=== PATIENT | male | born 1950 | race Caucasian/White ===

== ENCOUNTER 2024-02-22 06:51 | Outpatient (RCR) | payer MEDICARE, OTHER, SELFPAY | END 2024-02-22 23:59 | disposition home or self-care (01) | LOC: RPT 06:51 | PROVIDERS: ATTENDING PHYSICIAN Physician Assistant Surgical; FAMILY PHYSICIAN Family Medicine | DX: Z47.1 Aftercare following joint replacement surgery (principal); Z96.651 Presence of right artificial knee joint; R26.89 Other abnormalities of gait and mobility | CPT/HCPCS: 97110; 97162 ==

== ENCOUNTER 2024-02-28 06:21 | Outpatient (RCR) | payer MEDICARE, OTHER, SELFPAY | END 2024-02-28 07:56 | disposition home or self-care (01) | LOC: RPT 06:21 | PROVIDERS: ATTENDING PHYSICIAN Physician Assistant Surgical; FAMILY PHYSICIAN Family Medicine | DX: M17.12 Unilateral primary osteoarthritis, left knee (principal); R26.89 Other abnormalities of gait and mobility; Z96.651 Presence of right artificial knee joint; Z73.6 Limitation of activities due to disability | CPT/HCPCS: 97110 ==

== ENCOUNTER → 2024-05-09 06:38 | Outpatient (REF) | payer MEDICARE, OTHER, SELFPAY ==
[2024-05-09 08:03] LABS: ALT (SGPT) 28 U/L (0-50); AST (SGOT) 28 U/L (17-59); Albumin 4.5 g/dl (3.5-5.0); Alkaline Phosphatase 57 U/L (38-126); Blood Urea Nitrogen 22 mg/dl (9-20); Calcium 9.6 mg/dl (8.4-10.2); Carbon Dioxide 26 mmol/L (22-30); Chloride 103 mmol/L (98-107); Glucose 87 mg/dl (70-99); HDL Cholesterol 49 mg/dl; LDL Cholesterol, Calculated 116 mg/dl; Potassium 4.8 mmol/L (3.5-5.1); Sodium 141 mmol/L (135-145); Total Bilirubin 0.5 mg/dl (0.2-1.3); Total Cholesterol 185 mg/dl (50-199); Triglyceride 104 mg/dl (10-149); Very Low Density Lipoprotein 20 mg/dl (0-30); eGFR > 60.00
[2024-05-09 08:34] LABS: TSH Reflex To Free T4 4.07 uIU/ml (0.47-4.68)
== END ==
LOC: REG 06:38
PROVIDERS: ATTENDING PHYSICIAN Family Medicine
DX: I10 Essential (primary) hypertension (principal); E03.9 Hypothyroidism, unspecified; M17.11 Unilateral primary osteoarthritis, right knee; N40.0 Benign prostatic hyperplasia without lower urinary tract symptoms; E66.9 Obesity, unspecified
CPT/HCPCS: 36415; 80053; 80061; 84443

== ENCOUNTER 2024-05-14 06:23 | Day surgery (SDC) | payer MEDICARE, OTHER, SELFPAY | END 2024-05-14 08:54 | LOC: GI 06:23 | PROVIDERS: ATTENDING PHYSICIAN Internal Medicine Gastroenterology | DX: Z12.11 Encounter for screening for malignant neoplasm of colon (principal); K64.8 Other hemorrhoids; K57.30 Diverticulosis of large intestine without perforation or abscess without bleeding; K56.699 Other intestinal obstruction unspecified as to partial versus complete obstruction; K63.5 Polyp of colon; Z86.0100 Personal history of colon polyps, unspecified | CPT/HCPCS: 45380; 88305 ==

== ENCOUNTER → 2024-09-14 06:20 | Outpatient (REF) | payer MEDICARE, OTHER, SELFPAY ==
[2024-09-14 08:22] LABS: C-Reactive Protein < 5.00 mg/L (0.0-10.00)
[2024-09-14 08:30] LABS: Erythrocyte Sed Rate 8 mm/hour (0-20)
== END ==
LOC: REG 06:20
PROVIDERS: ATTENDING PHYSICIAN Orthopaedic Surgery Adult Reconstructive Orthopaedic Surgery; FAMILY PHYSICIAN Family Medicine
DX: Z96.651 Presence of right artificial knee joint (principal); Z01.818 Encounter for other preprocedural examination
CPT/HCPCS: 36415; 85652; 86140; 93005

== ENCOUNTER → 2024-10-05 06:22 | Outpatient (REF) | payer MEDICARE, OTHER, SELFPAY ==
[2024-10-05 07:05] LABS: % Basophils 0.8 % (0-2); % Eosinophils 2.7 % (0-6); % Immature Granulocytes 0.3 % (0-0.5); % Lymphocytes 26.9 % (20.5-51.1); % Monocytes 8.3 % (1.7-9.3); Absolute Basophils 0.1 10^3/uL (0-0.2); Absolute Eosinophils 0.2 10^3/uL (0-0.7); Absolute Lymphocytes 1.7 10^3/uL (1.2-3.4); Absolute Monocytes 0.5 10^3/uL (0.1-0.6); Absolute Neutrophils 3.9 10^3/uL (1.4-6.5); Hematocrit 45.2 % (39.0-52.0); Hemoglobin 15.3 g/dL (13.0-18.0); Mean Corp Hgb Conc. 33.8 g/dL (33.0-37.0); Mean Corpuscular Hgb 32.1 pg (27.0-31.0); Mean Platelet Volume 9.9 fL (7.4-10.4); Nucleated Red Blood Cells % 0 % (-); Platelet Count 235 10^3/uL (130-400); Red Blood Cell Count 4.76 10^6/uL (4.70-6.10); Red Cell Dist. Width 13.2 % (11.5-14.5); White Blood Cell Count 6.4 10^3/uL (4.8-10.8)
[2024-10-05 07:28] LABS: Blood Urea Nitrogen 20 mg/dl (9-20); Calcium 9.9 mg/dl (8.4-10.2); Carbon Dioxide 28 mmol/L (22-30); Chloride 102 mmol/L (98-107); Glucose 89 mg/dl (70-99); Potassium 4.2 mmol/L (3.5-5.1); Sodium 138 mmol/L (135-145); eGFR > 60.00
[2024-10-05 08:18] LABS: Hepatitis C Antibody Negative (Negative)
[2024-10-05 09:12] LABS: Glycohemoglobin (HgbA1c) 5.7 % (4.0-5.6)
[2024-10-07 00:55] LABS: Fructosamine 231 umol/L (205-285)
== END ==
LOC: REG 06:22
PROVIDERS: ATTENDING PHYSICIAN Orthopaedic Surgery Adult Reconstructive Orthopaedic Surgery; FAMILY PHYSICIAN Family Medicine
DX: Z01.818 Encounter for other preprocedural examination (principal); R73.09 Other abnormal glucose
CPT/HCPCS: 36415; 80048; 82985; 83036; 85025; 86803

== ENCOUNTER 2024-11-16 05:34 | Emergency (ER) | payer MEDICARE, OTHER, SELFPAY ==
[2024-11-16 05:40] VITALS: BP 158/85
[2024-11-16 05:46] VITALS: BMI 31.2
[2024-11-16 05:47] VITALS: BP 158/85
[2024-11-16 05:52] LABS: Glucose - Point of Care 100 mg/dl (70-99)
[2024-11-16 06:18] LABS: ALT (SGPT) 34 U/L (0-50); AST (SGOT) 24 U/L (17-59); Albumin 4.2 g/dl (3.5-5.0); Alkaline Phosphatase 67 U/L (38-126); Blood Urea Nitrogen 31 mg/dl (9-20); Calcium 9.8 mg/dl (8.4-10.2); Carbon Dioxide 26 mmol/L (22-30); Chloride 105 mmol/L (98-107); Estimated Creatinine Clearance 67 ml/min; Glucose 109 mg/dl (70-99); INR 0.99; PT 13.6 Sec (11.4-14.6); Potassium 4.3 mmol/L (3.5-5.1); Sodium 140 mmol/L (135-145); Total Protein 7.3 g/dl (6.3-8.2); eGFR > 60.00
[2024-11-16 06:19] LABS: APTT 28.5 Sec (23.4-35.0)
[2024-11-16 06:23] LABS: % Basophils 0.6 % (0-2); % Eosinophils 2.2 % (0-6); % Immature Granulocytes 0.3 % (0-0.5); % Lymphocytes 15.2 % (20.5-51.1); % Monocytes 6.2 % (1.7-9.3); % Neutrophils 75.5 % (42.2-75.2); Absolute Basophils 0.1 10^3/uL (0-0.2); Absolute Eosinophils 0.2 10^3/uL (0-0.7); Absolute Lymphocytes 1.6 10^3/uL (1.2-3.4); Absolute Monocytes 0.7 10^3/uL (0.1-0.6); Absolute Neutrophils 8.1 10^3/uL (1.4-6.5); Hematocrit 37.5 % (39.0-52.0); Hemoglobin 12.6 g/dL (13.0-18.0); Mean Corp Hgb Conc. 33.6 g/dL (33.0-37.0); Mean Corpuscular Hgb 31.2 pg (27.0-31.0); Mean Corpuscular Volume 92.8 fL (80.0-94.0); Mean Platelet Volume 8.8 fL (7.4-10.4); Nucleated Red Blood Cells % 0 % (-); Platelet Count 423 10^3/uL (130-400); Red Blood Cell Count 4.04 10^6/uL (4.70-6.10); Red Cell Dist. Width 13.3 % (11.5-14.5); White Blood Cell Count 10.8 10^3/uL (4.8-10.8)
[2024-11-16 06:29] LABS: Troponin I < 0.012 ng/ml
--- NOTE | 2024-11-16 06:30 | ED.CVA ---
History of Present Illness
General
Chief Complaint: CVA/TIA Symptoms
Source: patient and family
Exam Limitations: none
Time Seen by Provider: 11/16/24 05:46
Nursing documentation reviewed up to this point in time: agreed with
Onset of Stroke Symptoms
Onset of symptoms known: Yes
Date of onset of symptoms: 11/16/24
History of Present Illness
History of Present Illness:
Pleasant 74-year-old male presents to the emergency department with left-sided facial swelling and numbness. Patient denies any other symptoms. He states that he awakened at 3 AM with these symptoms. Patient does have a history of left total knee
replacement and history of hypertension for which he is treated with lisinopril. Patient denies slurred speech blurry vision headache nausea, vomiting, chest pain, shortness of breath, or any focal weakness. He states that his mentation is intact
as far as he can
Review of Systems
Review of Systems
Allergies reviewed?: Yes
All Other Systems: ROS reviewed and negative except as documented in HPI and ROS
Constitutional: Reports no symptoms
EENT: Reports no symptoms
Respiratory: Reports no symptoms
Cardiac: Reports no symptoms
ABD/GI: Reports no symptoms
: Reports no symptoms
Musculoskeletal: Reports no symptoms
Skin: Reports no symptoms
Neurological: Reports no symptoms
Endocrine: Reports no symptoms
Hematologic/Lymphatic: Reports no symptoms
Psychiatric: Reports anxiety
Phy Exam
General Physical Exam
General Presentation: well appearing and no apparent distress
General Skin: warm and dry
General Habitus: normal
General Mental: alert
General Hydration: appears well hydrated
ENT Exam
ENT Exam: EOMI, pharynx normal, neck supple and normocephalic
Eye Exam
Eye Exam: PERRL, cornea clear and conjunctiva normal
Cardiovascular Exam
Cardiovascular Exam: regular rate/rhythm, no edema, no murmur and normal peripheral pulses
Pulmonary Exam
Pulmonary Exam: lungs clear, no respiratory distress, no rales, no crackles, no rhonchi, no stridor, no wheezing and no cough
Gastrointestinal Exam
Gastrointestinal Exam: normal bowel sounds, non tender, soft, no organomegaly, no pulsatile mass and non distended
Neurological Exam
Neurological Exam: alert, oriented x3, no motor deficits and speech normal
Mental
Mental Status: oriented to person, oriented to place and oriented to time
Describe Speech: normal speech
Cranial
Cranial Nerves: normal
EOM (CN3/4/6): intact
Motor
Seizure Activity: none
Gait: normal
Tremors: none
Sensory
Sensory Exam: intact
Cerebellar
Cerebellar Function: normal finger to nose, normal heel to osuna and normal Romberg test
Musculoskeletal Exam
Musculoskeletal Exam: full ROM and no edema
Skin Exam
Skin Exam: normal color, warm/dry, no rash and no petechia
Psychiatric Exam
Psychiatric Exam: normal mood/affect
Scores
NIH Stroke Score
Level of Consciousness: 0 - Alert
LOC Questions: 0-Answers both correctly
LOC Commands: 0-Performs both correctly
Best Horizontal Gaze: 0-Normal
Visual Tian: 0=Normal, no visual loss
Facial Palsy: 0=Normal, symmetrical
Motor - Right Arm: 0=No drift 10 seconds
Motor - Left Arm: 0=No drift 10 seconds
Motor - Right Le-No drift 5 seconds
Motor - Left Le-No drift 5 seconds
Limb Ataxia: 0-Absent
Sensation: 0-Normal
Best Language: 0-No aphasia
Dysarthria: 0-Normal
Extinction and Inattention: 0-No abnormality
Total Score:: 0
Thrombolytic Contraindication
Inclusion and Exclusion criteria reviewed: Yes
Reasons for NON-Tx with Thrombolytics ABSOLUTE Exclusions: Greater than 4.5 hrs from onset of sxs
Course
Orders/Labs/Results
Orders:
Orders
11/16/24 05:45
Electrocardiogram (*1) Urgent
Reason for Study: Other
Other Reason for Exam: Possible Stroke
Head wo Contrast CT [CT Head W/o Iv Contrast] Urgent
Comment:
Reason For Exam: left facial drooping and numbness
Bedside Glucose- Treatment ONCE
EKG- Treatment ONCE
Weight As Directed
Frequency: Once
Comment: ZERO STRETCHER SCALE FOR ACCURATE WEIGHT
11/16/24 05:49
Complete Blood Count/With Diff Urgent
Comprehensive Metabolic Panel Urgent
Erythrocyte Sed Rate Urgent
PTT Urgent
Prothrombin Time Urgent
Troponin I Urgent
11/16/24 06:39
Dexamethasone [Decadron] 10 mg PO NOW STA
Diphenhydramine [Benadryl] 25 mg PO NOW STA
Abnormal Lab Results
11/16/24 11/16/24
05:49 05:50
RBC 4.04 L 10^6/uL
(4.70-6.10)
Hgb 12.6 L g/dL
(13.0-18.0)
Hct 37.5 L %
(39.0-52.0)
MCH 31.2 H pg
(27.0-31.0)
Plt Count 423 H 10^3/uL
(130-400)
Absolute Neuts (auto) 8.1 H 10^3/uL
(1.4-6.5)
Absolute Monos (auto) 0.7 H 10^3/uL
(0.1-0.6)
Neutrophils % 75.5 H %
(42.2-75.2)
Lymphocytes % 15.2 L %
(20.5-51.1)
ESR 28 H mm/hour
(0-20)
BUN 31 H mg/dl
(9-20)
Glucose 109 H mg/dl
(70-99)
POC Glucose 100 H mg/dl
(70-99)
11/16/24 05:49
11/16/24 05:49
Vital Signs
Initial and Last Documented VS:
Initial Vital Signs
Temp Pulse BP
98.0 F 90 158/85
11/16/24 05:40 11/16/24 05:40 11/16/24 05:40
Last Documented Vital Signs
Temp Pulse Resp BP Pulse Ox
98.0 F 69 13 158/85 99
11/16/24 05:40 11/16/24 06:30 11/16/24 06:30 11/16/24 05:47 11/16/24 06:30
*Critical Care Note
Total Time (30-74mins, 75-104mins- exclusive of procedures): Not Applicable
Update Note
Update Note:
I do not feel that this is French's palsy or a stroke.
There is no paralysis. I would expect it to French's palsy there be facial and forehead paralysis
He is able to smile without issue.
No drooling on the left side.
There is no ptosis or eyebrow drop
His nasolabial fold is intact bilaterally and equal.
No ear pain. Tympanic membranes are intact.
Patient's NIH score is 0.
His only complaint is swelling of the left lower lip.
No intraoral lesions. Good dentition
NAME: THONY FARRELL
DATE OF EXAM: 11/16/2024
Patient No: [id number]
Physician: KHUSHBU^Lulu
Date of : 1950
Past Medical History (entered by Technologist):
Reason For Exam (entered by Technologist):
Other Notes (entered by Technologist): Pt awoke at 3 AM with left sided mouth drooping and feeling numb. No other symptoms. Hx of recent left TKR; hx of hypertension
No prior
Additional Information (per [facility]iologist):
CT head without IV contrast
IMPRESSION:
No hemorrhage or other acute intracranial abnormality.
Finalized at 6:20 AM EST
ED Attending Note
-
Portions of this chart may have been created with voice recognition software.� Occasional wrong word or��sound alike� substitutions may have occurred due to the inherent limitations of voice recognition software.
Discharge Plan
Departure
Patient Disposition: Home (Routine Discharge)
Date of Disposition: 11/16/24
Time of Disposition: 06:56
Patient with high blood pressure during this ER visit?: No
Discharge Problem:
Angioedema
Instructions: Angioedema
Prescriptions:
New
prednisone 50 mg tablet
50 mg PO DAILY Qty: 5 0RF
diphenhydramine HCl [Benadryl] 25 mg capsule
25 mg PO TID PRN (Reason: allergy symptoms) Qty: 14 0RF
No Action
valacyclovir 500 MG tablet
500 mg PO DAILY
tamsulosin 0.4 MG capsule
0.4 mg PO DAILY
simvastatin 20 MG tablet
20 mg PO DAILY
multivitamin with folic acid [Tab-A-Iain] 1 TABLET tablet
1 tab PO DAILY
krill oil 1 EACH capsule
1 ea PO DAILY
levothyroxine 25 MCG tablet
25 mcg PO DAILY
glucosamine-chondroitin 533-46-806-1 mg Tablet
1 tab PO DAILY
oxycodone 5 mg tablet
5 mg PO Q6H PRN (Reason: moderate-severe pain) Qty: 30 0RF
Rx Instructions:
1 tab for moderate pain, 2 if severe.
Dx total joint. Ongoing therapy.
meloxicam 15 mg tablet
15 mg PO DAILY Qty: 14 0RF
Rx Instructions:
Take with food.
Do NOT take within 2 hours of Aspirin post-surgery.
dexamethasone 4 mg tablet
4 mg PO BID Qty: 7 0RF
Rx Instructions:
Start night of discharge and take twice daily until finished.
Take with food.
ondansetron HCl 4 mg tablet
4 mg PO Q6H PRN (Reason: nausea and vomiting) Qty: 20 0RF
Rx Instructions:
Take 1/2 hour prior to oxycodone if experiencing recurrent nausea.
famotidine [Pepcid] 20 mg tablet
20 mg PO HS Qty: 14 0RF
Rx Instructions:
Take nightly while on Meloxicam to reduce potential GI upset.
mupirocin 2 % ointment
1 applic intranasal BID Qty: 1 0RF
Patient Comments:
patient has been applying bid since 3 days ago ..patient applied this am
acetaminophen [Acetaminophen Extra Strength] 500 mg tablet
1,000 mg PO Q6H Qty: 60 0RF
Rx Instructions:
DO NOT exceed >4000 mg daily.
aspirin 325 mg tablet
325 mg PO DAILY Qty: 30 0RF
Rx Instructions:
Take daily x4 weeks for blood clot prevention.
docusate sodium [Colace] 100 mg capsule
100 mg PO BID Qty: 30 0RF
sennosides [senna] 8.6 mg tablet
17.2 mg PO BID Qty: 30 0RF
lisinopril-hydrochlorothiazide 20-25 mg Tablet
1 tab PO DAILY Qty: 1 0RF
Rx Instructions:
HOLD if systolic blood pressure <130 while on Oxycodone.
Referrals:
Izabela Eugene MD [Consulting Staff] -
Cony Fontana MD [Family Provider] -
Activity Restrictions/Additional Instructions:
Please discontinue your lisinopril
Please discuss with Dr. Fontana switching to a different antihypertensive
Return to the ER with any changing or worsening of symptoms.
Thank You for choosing [facility].
It was a pleasure meeting you and taking part in your care. We hope for your continued healing and wellness.
Please read discharge instructions in their entirety. However, they are for general education and may not describe your exact diagnosis at discharge. Information on your ER visit and medical conditions were discussed with you along with appropriate
follow up information...
If indicated, please take your medications as instructed and indicated on discharge paperwork.
Please schedule a follow up appointment as directed. Call to schedule an appointment
Please return to the emergency department with ANY change in, persisting, or worsening of symptoms. If any of your symptoms do not improve, or persist, or become more severe within 6-12 hours, please return to the emergency department for further
care.
Please return to the emergency department if you develop a headache, neck pain/stiffness, fever greater than 100.4F, chest pain, shortness of breath, persistent nausea, vomiting, slurred speech, difficulty walking, numbness/tingling, weakness, signs
of infection or any other symptoms that are worrisome to you.
If you have any questions or concerns please do not hesitate to call the Hospital at or E-mail me directly at [email or web address]
Interventions
Interventions:
*Risk Screen - Suicide Last Done: 11/16/24 05:40
*General Assessment Last Done: 11/16/24 05:49
*Neglect/Abuse Screening Last Done: 11/16/24 05:40
*ED- Fall Risk Assessment Last Done: 11/16/24 05:40
*ED COVID-19 Vaccine History Last Done: 11/16/24 05:44
*Nursing Disposition Last Done: 11/16/24 07:04
ED- Pulmonary Assessment Last Done: 11/16/24 05:56
ED- Neurological Assessment Last Done: 11/16/24 05:56
ED- Cardiac Assessment Last Done: 11/16/24 05:56
ED Swallowing Screen Last Done: 11/16/24 07:04
Discharge Date and Time
Discharge Date/Time: 11/16/24 07:28
Print Language: THAI
[2024-11-16] MEDS: BENADRYL 25 MG PO (07:15)
[2024-11-16] MEDS: DECADRON 10 MG PO (07:15)
[2024-11-16 07:57] LABS: Erythrocyte Sed Rate 28 mm/hour (0-20)
== END 2024-11-16 07:28 | disposition home or self-care (01) ==
LOC: EMR 05:34
PROVIDERS: EMERGENCY PHYSICIAN Student in an Organized Health Care Education/Training Program; FAMILY PHYSICIAN Family Medicine
DX: T78.3XXA Angioneurotic edema, initial encounter (principal); Y92.9 Unspecified place or not applicable; Z96.652 Presence of left artificial knee joint; I10 Essential (primary) hypertension
CPT/HCPCS: 99284; 70450; 80053; 82962; 84484; 85025; 85610; 85652; 85730; 93005

== ENCOUNTER 2025-03-22 06:08 | Outpatient (RCR) | payer MEDICARE, OTHER, SELFPAY | END 2025-03-22 23:59 | disposition home or self-care (01) | LOC: RPT 06:08 | PROVIDERS: ATTENDING PHYSICIAN Family Medicine | DX: Z47.1 Aftercare following joint replacement surgery (principal); M25.562 Pain in left knee; Z73.6 Limitation of activities due to disability; R26.89 Other abnormalities of gait and mobility; Z96.652 Presence of left artificial knee joint | CPT/HCPCS: 97110; 97162 ==

== ENCOUNTER 2025-03-29 06:20 | Outpatient (RCR) | payer MEDICARE, OTHER, SELFPAY | END 2025-03-29 12:22 | disposition home or self-care (01) | LOC: RPT 06:20 | PROVIDERS: ATTENDING PHYSICIAN Family Medicine | DX: Z47.1 Aftercare following joint replacement surgery (principal); M25.562 Pain in left knee; Z73.6 Limitation of activities due to disability; R26.89 Other abnormalities of gait and mobility; Z96.652 Presence of left artificial knee joint | CPT/HCPCS: 97110 ==

== ENCOUNTER → 2025-05-20 06:20 | Outpatient (REF) | payer MEDICARE, OTHER, SELFPAY ==
[2025-05-20 07:43] LABS: ALT (SGPT) 23 U/L (0-50); AST (SGOT) 24 U/L (17-59); Albumin 4.5 g/dl (3.5-5.0); Alkaline Phosphatase 65 U/L (38-126); Blood Urea Nitrogen 17 mg/dl (9-20); Calcium 9.6 mg/dl (8.4-10.2); Carbon Dioxide 30 mmol/L (22-30); Chloride 102 mmol/L (98-107); Glucose 95 mg/dl (70-99); HDL Cholesterol 52 mg/dl; LDL Cholesterol, Calculated 81 mg/dl; Potassium 4.1 mmol/L (3.5-5.1); Sodium 136 mmol/L (135-145); Total Protein 7.6 g/dl (6.3-8.2); Very Low Density Lipoprotein 16 mg/dl (0-30); eGFR > 60.00
[2025-05-20 09:14] LABS: Glycohemoglobin (HgbA1c) 5.7 % (4.0-5.9)
== END ==
LOC: REG 06:20
PROVIDERS: ATTENDING PHYSICIAN Family Medicine
DX: I10 Essential (primary) hypertension (principal); E03.9 Hypothyroidism, unspecified; E78.00 Pure hypercholesterolemia, unspecified; R73.9 Hyperglycemia, unspecified
CPT/HCPCS: 36415; 80053; 80061; 83036; 84443